=== PATIENT | female | born 1995 | race Caucasian/White ===

== ENCOUNTER 2016-04-18 07:08 | Emergency (ER) | payer SELFPAY ==
[2016-04-18 07:31] VITALS: BP 118/65; PULSE 102; TEMP 98.2; BMI 27.1
[2016-04-18 08:03] LABS: LEUKOCYTES/URINE 2+ (NEGATIVE); NITRITE/URINE NEG (NEGATIVE); URINE OCCULT BLOOD NEG (NEG/TRACE)
== END 2016-04-18 08:29 | disposition left against medical advice (07) ==
LOC: ED 07:08
DX: R51 Headache (principal)
CPT/HCPCS: 81001; 81025